=== PATIENT | male | born 1950 | race Caucasian/White ===

== ENCOUNTER 2016-10-07 11:01 | Day surgery (SDC) | payer MEDICARE, MEDICAID ==
[~2016-10-07] VITALS: Ht 174 cm; Wt 78.0 kg
[~2016-10-07 11:01] MED LIST: 0.9% Sodium Chloride 1,000 ML IV PRN; ASCO500C6 PO; MULT1CAP33 PO; Sodium Chloride LOK Flush 10 mL Syringe IV PRN; VIT1TABL83 PO; fentaNYL-PF 50 mCg/mL 2 mL Inj IVPUSH PRN
[2016-10-07 11:22] VITALS: BP 140/85; PULSE 67; RESP 16; O2SAT 97
[2016-10-07 13:11] VITALS: BP 129/86; PULSE 56; RESP 12; O2SAT 95
--- NOTE | 2016-10-07 13:11 | PCM.ENDCOL ---
Colonoscopy Date of Service: Oct 07, 2016 Physician Siva Dexter MD Pre Procedure Diagnosis: Screening diarrhea has resolved Post Procedure Dx & Findings: Polyp hemorrhoids diverticuli Procedure Colonoscopy PROCEDURE IN DETAIL: Prep adequate Withdrawal time 15 minutes After unremarkable rectal examination the Olympus video colonoscope was inserted patient's anal canal and was advanced to cecum. Landmarks were identified including the ileocecal valve and appendiceal orifice. Scope was withdrawn systematically. Visualized colonic mucosa showed healthy shiny mucosa with normal healthy-appearing vasculature. In the transverse colon there were total of 3 polyps. 2 were 1 mm in size. These were resected completely using cold forceps. One of the polyp was 2 mm in size which was resected completely using cold snare. In the sigmoid colon, there are several small diverticuli. In the rectum, there was a 2 mm polyp which was removed completely using cold snare. In the rectum retroflexion was done which showed hemorrhoids. Anal canal was inspected carefully on the way out and hemorrhoids noted. Impression Polyp 4 status post complete removal Hemorrhoids Diverticuli Recommendation Repeat colonoscopy 3 years Diverticular diet Presedation Assessment Risks and Benefits Informed consent was obtained from the patient after all risks and benefits including but not limited to drug reaction, infection, pain, bleeding, perforation, as well as alternatives were discussed. Patient monitoring Continuous pulse oximetry, cardiac monitoring, blood pressure monitoring, IV access, and oxygen at 2L per nasal cannula. Periprocedural Fentanyl: Fentanyl 100mcg Incrementally Midazolam: Midazolam 5mg Incrementally Complications There were no periprocedural complications identified. Post Procedure Plan Post Procedure Recommendations 1. Restrict activities today. 2. Resume normal activities in the morning. 3. Resume medications. 4. Patient informed of normal post procedure side effects as bloating, drowsiness, blood streaking in the stool. 5. average risk CRCS. If colon polyps come back as: -Hyperplastic- can repeat colonoscopy in 10 years -Tubular adenoma- repeat colonoscopy in 5 years -Tubulovillous/villous adenoma- repeat colonoscopy in 3 years -If any dysplasia- return to clinic as soon as possible 6. Please don't hesitate to call me with any questions. Siva Dexter MD Oct 07, 2016 13:11
[2016-10-07 13:21] VITALS: BP 118/77; PULSE 58; RESP 12; O2SAT 95
--- NOTE | 2016-10-08 13:36 | PATH ---
SURGICAL PATHOLOGY Attending Physician:Siva Dexter M.D. CASE STATUS: Signed Out PATIENT NAME: CHEYENNE BUCHANAN PID: [id number] : 1950 DATE COLLECTED:10/07/2016 20:05 SPECIMEN: 1: Colon, Biopsy 2: Rectum, Biopsy CLINICAL HISTORY: 1). TRANSVERSE COLON POLYP X3 2). RECTAL POLYP FINAL DIAGNOSIS: 1.TRANSVERSE COLON POLYPS: TUBULAR ADENOMA INVOLVING ALL BIOPSY FRAGMENTS. 2.RECTAL POLYP: HYPERPLASTIC POLYP. ICD10 CODE D12.3 GROSS DESCRIPTION: The specimen is received in two formalin filled containers labeled with the patient's name. 1). The specimen is sublabeled "transverse colon polyp x3" and consists of 4 portions of tissue which aggregate to 0.4 x 0.4 x 0.3 CM. The specimen is entirely submitted in cassette 1A. 2). The specimen is sublabeled "rectal polyp" and consists of a 0.3 x 0.2 x 0.2 CM portion of tissue which is entirely submitted in cassette 2A. 10/07/2016 [facility] MICRO DESCRIPTION: See diagnosis. ICD-9 CODES: CPT CODES: 1: 11281 2: 87139 Electronically Signed Out Justin Barreto MD [facility] Pathology [facility] [address] [place] [address] Technical component performed at [facility], [facility] [address], [address]
== END 2016-10-07 23:59 | disposition home or self-care (01) ==
LOC: END 11:01
PROVIDERS: ATTEND Internal Medicine
DX: D12.3 Benign neoplasm of transverse colon (principal); K62.1 Rectal polyp; K57.30 Diverticulosis of large intestine without perforation or abscess without bleeding; K64.8 Other hemorrhoids; R19.7 Diarrhea, unspecified; Z87.891 Personal history of nicotine dependence
CPT/HCPCS: 45380; 45385; 88305; 99153; G0500; J2250; J3010; J7030